=== PATIENT | female | born 1975 | race African-American/Black ===

== ENCOUNTER 2023-01-16 18:29 | Emergency (ER) | payer MEDICAID ==
[~2023-01-16] VITALS: Ht 165.1 cm; Wt 61.0 kg
[2023-01-16 18:50] VITALS: BP 120/71; PULSE 61; RESP 20; TEMP 98.5; O2SAT 100
[2023-01-16 19:37] LABS: CLARITY URINE CLEAR (CLEAR); COLOR URINE YELLOW (YELLOW); GLUCOSE URINE NEGATIVE (NEGATIVE); KETONES URINE NEGATIVE (NEGATIVE); LEUKOCYTE ESTERASE URINE NEGATIVE (NEGATIVE); NITRITE URINE NEGATIVE (NEGATIVE); OCCULT BLOOD URINE NEGATIVE (NEGATIVE); PH URINE 6.5 (4.5-8.0); PROTEIN URINE NEGATIVE (NEGATIVE); SPECIFIC GRAVITY URINE 1.019 (1.005-1.030)
[2023-01-16 20:24] LABS: CHLORIDE 108 mEq/L (98-107); INDEX HEMOLYSI 1 (1-3); INDEX ICTERIC 1 (1-4); INDEX LIPEMIC 1 (1-3); SODIUM 137 mEq/L (136-145)
[2023-01-16 20:30] LABS: EOSINOPHILS % 0.9 % (0.0-5.0); HEMATOCRIT. 41.9 % (36.0-48.0); HEMOGLOBIN. 13.8 g/dL (12.0-16.0); LYMPHOCYTES % 40.2 % (20.0-50.0); MEAN CORPUSCULAR HEMOGLOBIN 28.5 pg (28.0-32.0); MEAN CORPUSCULAR HGB CONC 32.9 g/dL (31.0-37.0); MEAN CORPUSCULAR VOLUME 86.9 fL (81.0-99.0); MEAN PLATELET VOLUME 10.3 fl (7.4-10.4); MONOCYTES % 12.4 % (2.0-8.0); NEUTROPHILS % 46.5 % (40.0-76.0); PLATELET 223 x1000/uL (130-400); RED BLOOD CELL COUNT 4.82 mill/uL (4.2-5.4); RED CELL DISTRIBUTION WIDTH 13.6 % (11.6-14.6); WHITE BLOOD COUNT 5.4 x1000/uL (4.5-11.0)
[2023-01-16 20:32] LABS: ALANINE AMINOTRANSFERASE 23 IU/L (13-61); ALBUMIN 3.7 g/dL (3.4-5.0); ASPARTATE AMINOTRANSFERASE 10 IU/L (15-37); BILIRUBIN TOTAL 0.3 mg/dL (0.1-1.0); CARBON DIOXIDE 26 mEq/L (21-32); CREATININE 0.8 mg/dL (0.6-1.3); GLUCOSE 88 mg/dL (70-105); PROTEIN TOTAL 7.6 g/dL (6.0-8.3); UREA NITROGEN BLOOD 13 mg/dL (7-21)
[2023-01-16 20:46] LABS: DIFFERENTIAL COMMENT 1
[2023-01-16] MEDS ORDERED: IBUP-2029 MT (22:12)
[2023-01-16] MEDS ORDERED: KETOROLAC 60MG/2ML VIAL IM ONE (22:15)
== END 2023-01-16 22:47 | disposition home or self-care (01) ==
LOC: ER 18:29
DX: R10.31 Right lower quadrant pain (principal); F17.210 Nicotine dependence, cigarettes, uncomplicated; Z90.710 Acquired absence of both cervix and uterus
CPT/HCPCS: 99285; 76830; 76856; 80053; 81003; 81025; 83690; 85025; 36415; 96372; J1885